=== PATIENT | male | born 1940 | race Caucasian/White ===

== ENCOUNTER 2017-04-25 16:27 | Outpatient (CLI) | END 2017-04-25 16:28 | disposition short-term general hospital (02) | LOC: AMBL 16:27 | PROVIDERS: ATTEND Internal Medicine Geriatric Medicine | DX: R52 Pain, unspecified (principal); R41.0 Disorientation, unspecified; R09.89 Other specified symptoms and signs involving the circulatory and respiratory systems; C34.90 Malignant neoplasm of unspecified part of unspecified bronchus or lung; C45.7 Mesothelioma of other sites; Z99.81 Dependence on supplemental oxygen ==